=== PATIENT | male | born 1975 | race African-American/Black ===

== ENCOUNTER 2016-05-21 23:19 | Observation (INO) | payer MEDICAID, OTHER ==
[~2016-05-21] VITALS: Ht 193 cm; Wt 115.0 kg
[2016-05-21 23:24] VITALS: BP 163/108; PULSE 81; RESP 16; TEMP 97.9; O2SAT 97
[2016-05-22 00:01] LABS: AUTOMATED NEUTROPHIL # 4.2 TH/MM3 (1.8-7.7); BASOPHIL % 0.3 % (0.0-2.0); EOSINOPHIL # 0.2 TH/MM3 (0-0.4); EOSINOPHIL % 2.4 % (0.0-4.0); HEMATOCRIT 42.1 % (39.0-51.0); HEMO FLAGS DIFF FINAL; LYMPH % 35.2 % (9.0-44.0); LYMPHOCYTE # 2.9 TH/MM3 (1.0-4.8); MEAN CELL VOLUME 83.5 FL (80.0-100.0); MEAN CORPUSCULAR HEMOGLOBIN 27.5 PG (27.0-34.0); MEAN CORPUSCULAR HGB CONC 32.9 % (32.0-36.0); MONO % 10.7 % (0.0-8.0); NEUT % 51.4 % (16.0-70.0); PLATELET COUNT 245 TH/MM3 (150-450); RED BLOOD COUNT 5.05 MIL/MM3 (4.50-5.90); WHITE BLOOD COUNT 8.2 TH/MM3 (4.0-11.0)
[2016-05-22 00:07] VITALS: BP 146/95; PULSE 84; RESP 16; O2SAT 95
[2016-05-22 00:16] LABS: APTT (PATIENT) 26.6 SEC (24.3-30.1); INTERNATIONAL NORMALIZED RATIO 0.9 RATIO
--- NOTE | 2016-05-22 00:18 | RADRPT ---
EXAM DATE/TIME: 05/21/2016 23:32 [facility] COMPARISON: No previous studies available for comparison. INDICATIONS : Chest pain. MEDICAL HISTORY : None. SURGICAL HISTORY : None. ENCOUNTER: Initial ACUITY: 2 weeks PAIN SCORE: 5/10 LOCATION: Bilateral chest FINDINGS: A single view of the chest demonstrates the lungs to be symmetrically aerated without evidence of mas s, infiltrate or effusion. The cardiomediastinal contours are unremarkable. Osseous structures are intact. CONCLUSION: No acute disease. Jose Michael MD on May 22, 2016 at 0:16 Board Certified Radiologist. This report was verified electronically.
[2016-05-22 00:22] LABS: ANION GAP 8 MEQ/L (5-15); BICARBONATE 29.6 MEQ/L (21.0-32.0); BLOOD UREA NITROGEN 15 MG/DL (7-18); CHLORIDE 104 MEQ/L (98-107); CREATINE KINASE 252 U/L (39-308); GLOMERULAR FILTRATION RATE 60 ML/MIN (>89); POTASSIUM 3.9 MEQ/L (3.5-5.1); SODIUM (NA) 142 MEQ/L (136-145)
[2016-05-22 00:35] LABS: CKMB 0.6 NG/ML (0.5-3.6)
--- NOTE | 2016-05-22 00:57 | PD ---
HPI Chief Complaint: Chest Pain Time Seen by Provider: 00:08 Travel History International Travel<30 days: No Contact w/Intl Traveler<30days: No Traveled to known affect area: No History of Present Illness HPI 40-year-old male complains of chest pain. Patient states that he has intermittent chest pain for the past 2 weeks. Patient states that the pain started on the left chest with radiation to left-sided neck, left shoulder and left arm. Patient states that the pain is not associated with exertion. Patient states the pain is worse when lying down. Patient has history hypertension, dyslipidemia. Patient denies history diabetes. Patient is a nonsmoker. Patient has family history of heart disease. Patient denies history of CAD. On a scale of 1-10 the pain is a 7. PFSH Social History Tobacco Use: No Allergies-Medications (Allergen,Severity, Reaction): Coded Allergies: No Known Allergies (Unverified , 05/21/16) Reported Meds & Prescriptions Reported Meds & Active Scripts Active Medrol Dosepak (Methylprednisolone) 4 Mg Dspk 4 Mg PO DIRECTED Per Pharmacist direction Review of Systems General / Constitutional: No: Fever Eyes: No: Visual changes HENT: No: Headaches Cardiovascular: Positive: Chest Pain or Discomfort Respiratory: No: Shortness of Breath Gastrointestinal: No: Abdominal Pain Genitourinary: No: Dysuria Musculoskeletal: No: Pain Skin: No Rash Neurologic: No: Weakness Psychiatric: No: Depression Endocrine: No: Polydipsia Hematologic/Lymphatic: No: Easy Bruising Physical Exam Narrative GENERAL: Well-nourished, well-developed patient. SKIN: Warm and dry. HEAD: Normocephalic. EYES: No scleral icterus. No injection or drainage. NECK: Supple, trachea midline. No JVD or lymphadenopathy. CARDIOVASCULAR: Regular rate and rhythm without murmurs, gallops, or rubs. RESPIRATORY: Breath sounds equal bilaterally. No accessory muscle use. GASTROINTESTINAL: Abdomen soft, non-tender, nondistended. MUSCULOSKELETAL: No cyanosis, or edema. BACK: Nontender without obvious deformity. No CVA tenderness. Neurologic exam normal. Data Data Last Documented VS Vital Signs Date Time Temp Pulse Resp B/P Pulse Ox O2 Delivery O2 Flow Rate FiO2 05/22/16 00:07 84 16 146/95 95 Room Air 05/21/16 23:24 97.9 Orders Electrocardiogram (05/21/16 23:28) Complete Blood Count With Diff (05/21/16 23:28) Basic Metabolic Panel (Bmp) (05/21/16:28) Ckmb (Isoenzyme) Profile (05/21/16:) Troponin I (05/21/16:) Chest, Single Ap (05/21/16:28) Coag Profile (05/21/16:) CKMB (05/21/16 22:35) CKMB% (05/21/16 22:35) Ketorolac Inj (Toradol Inj) (05/22/16 01:00) Aspirin (Aspirin) (05/22/16 01:00) Activity Bed Rest With Brp (05/22/16 01:02) Vital Signs (Adult) Q4H (05/22/16 01:02) Cardiac Rhythm .As Directed (05/22/16 01:02) ^ Notify Dr: Other .PRN (05/22/16 01:02) ^ Notify Dr. Parameters (05/22/16 01:02) Resp Oxygen Nasal Cannula (05/22/16 ) Ckmb (Isoenzyme) Profile (05/22/16 01:35) Ckmb (Isoenzyme) Profile (05/22/16 04:35) Troponin I (05/22/16 01:35) Troponin I (05/22/16 04:35) Electrocardiogram (05/22/16 01:35) Electrocardiogram (05/22/16 04:35) ^ Obtain (05/22/16 01:02) Acetaminophen (Tylenol) (05/22/16 01:15) Ondansetron Inj (Zofran Inj) (05/22/16 01:15) Metal Sander / Telemetry BONITA.Q8H (05/22/16 01:02) Admit Order (Ed Use Only) (05/22/16 01:17) CKMB (05/22/16 02:45) CKMB% (05/22/16 02:45) Labs Laboratory Tests Test 05/21/16 23:35 White Blood Count 8.2 TH/MM3 Red Blood Count 5.05 MIL/MM3 Hemoglobin 13.9 GM/DL Hematocrit 42.1 % Mean Corpuscular Volume 83.5 FL Mean Corpuscular Hemoglobin 27.5 PG Mean Corpuscular Hemoglobin 32.9 % Concent Red Cell Distribution Width 14.0 % Platelet Count 245 TH/MM3 Mean Platelet Volume 7.9 FL Neutrophils (%) (Auto) 51.4 % Lymphocytes (%) (Auto) 35.2 % Monocytes (%) (Auto) 10.7 % Eosinophils (%) (Auto) 2.4 % Basophils (%) (Auto) 0.3 % Neutrophils # (Auto) 4.2 TH/MM3 Lymphocytes # (Auto) 2.9 TH/MM3 Monocytes # (Auto) 0.9 TH/MM3 Eosinophils # (Auto) 0.2 TH/MM3 Basophils # (Auto) 0.0 TH/MM3 CBC Comment DIFF FINAL Differential Comment Prothrombin Time 10.0 SEC Prothromb Time International 0.9 RATIO Ratio Activated Partial 26.6 SEC Thromboplast Time Sodium Level 142 MEQ/L Potassium Level 3.9 MEQ/L Chloride Level 104 MEQ/L Carbon Dioxide Level 29.6 MEQ/L Anion Gap 8 MEQ/L Blood Urea Nitrogen 15 MG/DL Creatinine 1.32 MG/DL Estimat Glomerular Filtration 60 ML/MIN Rate Random Glucose 111 MG/DL Calcium Level 8.5 MG/DL Total Creatine Kinase 252 U/L Creatine Kinase MB 0.6 NG/ML Troponin I LESS THAN 0.02 NG/ML MDM Medical Decision Making Medical Screen Exam Complete: Yes Emergency Medical Condition: Yes Interpretation(s) EKG shows sinus rhythm with nonspecific ST-T wave change. Minimal ST elevation in II, III and aVF. EKG was sent to Dr. Soto by phone. Last Impressions Chest X-Ray 05/21/16 0994 Signed Impressions: Service Date/Time: Saturday, May 21, 2016 23:32 - CONCLUSION: No acute disease. Jose Michael MD 12:56 AM. CBC within normal limit. BMP within normal limit. Creatinine 1.32. Cardiac enzymes are normal. Differential Diagnosis Differential diagnosis including angina, PR, PE, pneumothorax. Narrative Course 40-year-old male with left-sided chest pain. Toradol 30 mg IV. Aspirin 325 mg by mouth. Diagnosis Primary Impression: Chest pain Qualified Code: R07.9 - Chest pain, unspecified type Admitting Information Admitting Physician Requests: Observation Scripts Methylprednisolone Dosepak (Medrol Dosepak)4 Mg Dspk4 Mg PO DIRECTED #1 DSPK Ref 0 Per Pharmacist direction Prov:Kali Landaverde 05/22/16 Kimo Cheng MD May 22, 2016 00:57
[2016-05-22] MEDS ORDERED: ASPIRIN 325 MG TAB PO ONE (01:00)
[2016-05-22] MEDS ORDERED: KETOROLAC TROMETHAMINE 30 MG/ML (IVP) VIAL IV PUSH ONE (01:00)
[2016-05-22] MEDS ORDERED: ONDANSETRON HCL 4 MG/2 ML VIAL IV PRN (01:15)
[2016-05-22] MEDS ORDERED: ACETAMINOPHEN 500 MG CPLT PO PRN (01:15)
[2016-05-22 03:36] LABS: CREATINE KINASE 236 U/L (39-308)
[2016-05-22 03:48] LABS: CKMB 0.8 NG/ML (0.5-3.6)
[2016-05-22 04:15] VITALS: BP 138/78; PULSE 81; RESP 16; O2SAT 97
[2016-05-22 05:13] LABS: CREATINE KINASE 204 U/L (39-308)
[2016-05-22 07:30] VITALS: BP 124/85; PULSE 70; RESP 17; TEMP 97.8; O2SAT 98
[2016-05-22] MEDS ORDERED: IOHEXOL 350 MG/ML 10 ML VIAL (for RAD DIAG) IV ONE (08:13)
--- NOTE | 2016-05-22 08:27 | RADRPT ---
EXAM DATE/TIME: 05/22/2016 07:57 [facility] COMPARISON: No previous studies available for comparison. INDICATIONS : Chest pain and shortness of breath. IV CONTRAST: 75 cc Omnipaque 350 (iohexol) IV RADIATION DOSE: 39.25 CTDIvol (mGy) MEDICAL HISTORY : None SURGICAL HISTORY : None. ENCOUNTER: Initial ACUITY: 1 day PAIN SCALE: 7/10 LOCATION: chest TECHNIQUE: Volumetric scanning of the chest was performed using a pulmonary embolism protocol MIP images were re constructed. Using automated exposure control and adjustment of the mA and/or kV according to patien t size, radiation dose was kept as low as reasonably achievable to obtain optimal diagnostic quality images. FINDINGS: PULMONARY ARTERIES: No filling defects are seen in the pulmonary arteries through the segmental level. LUNGS: There is no consolidation or pneumothorax . No concerning pulmonary nodule is visualized. PLEURAE: There is no pleural thickening or pleural effusion. MEDIASTINUM: There is good visualization of the great vessels of the middle mediastinum. No evidence of mediastin al or hilar adenopathy/mass. MUSCULOSKELETAL: Within normal limits for patient age. MISCELLANEOUS: The visualized upper abdominal organs demonstrate no acute abnormality. CONCLUSION: Normal examination. Javier Han MD on May 22, 2016 at 8:17 Board Certified Radiologist. This report was verified electronically.
--- NOTE | 2016-05-22 10:15 | HHI.HP ---
HPI Primary Care Physician No Primary Care Physician Chief Complaint Chest pain History of Present Illness This is a 40-year-old male that presents to the ED via private vehicle with complaints of back pain as well as chest pain intermittently for about 2 weeks. First symptoms included a discomfort in his left back beneath his left scapula. It radiated up to his neck on the left side and around to his left rib cage. Then yesterday he had a different discomfort that was in addition to the discomfort in his back that radiated to the neck and chest. The new symptom was a discomfort in the left side of his chest and felt deeper. It began while he was driving home and persisted while he was at home. He states he decided to go lay down and when he laid down the discomfort intensified significantly and he felt as if he is having a hard time catching his breath and her more when he would try to take in a deep breath. He suddenly sat up and realized that when he sat up the discomfort improved significantly. He tried to lay back down but worse since a sat back up. He took an ibuprofen and sat in his chair. The discomfort that began to improve however his back, neck, and other discomfort his chest continued and he began to worry. That is when he presented to the ED. He states he was given more medication in the ER. Upon review records she was given IV Toradol. He states that after getting medication and he also believes the Motrin helped and is now able to lie back without worsening symptoms or having shortness of breath or inspirational chest discomfort. The discomfort in his back is still there but that is also improved. He denies any recent illnesses. Denies fevers or chills. Denies history of CAD. Review of Systems General: Patient denies fevers, chills recent, and recent travel HEENT: Patient denies headache, sore throat, difficulty swallowing. Cardiovascular: Has the chest discomfort as mentioned above. Denies sensation of heart beating rapidly or irregularly. No syncope. Denies diaphoresis. Respiratory: He had shortness of breath, inspirational chest discomfort, and his discomfort worsened when he would lie down. Denies coughing wheezing or hemoptysis. GI: Patient denies nausea, vomiting, diarrhea, abdominal pain, bloody stools. Musculoskeletal: Patient denies joint pain or edema. Denies calf pain or edema. Neurovascular: Patient denies numbness, tingling, weakness in extremities. Denies headache. Endocrine: Denies polyuria and polydipsia. Hematologic: Denies easy bruising. Skin: Denies rash or itching. Past Family Social History Allergies: Coded Allergies: No Known Allergies (Unverified , 05/21/16) Past Medical History Denies hypertension, hyperlipidemia, diabetes, and CAD. He is a lifetime nonsmoker. Past Surgical History Denies surgeries. Reported Medications Reported Meds & Active Scripts Active No Active Prescriptions or Reported Medications Active Ordered Medications Current Medications Medications (Trade) Dose Ordered Sig/Tan Route Start Time Stop Time Status Last Admin (Tylenol) 500 mg Q4H PRN PO 05/22/16 01:15 (Zofran Inj) 4 mg Q6H PRN IV 05/22/16 01:15 Family History Denies family history of CAD. Social History Patient is a lifetime nonsmoker. Has occasional alcohol. Denies illicit drugs. Physical Exam Vital Signs Vital Signs Date Time Temp Pulse Resp B/P Pulse Ox O2 Delivery O2 Flow Rate FiO2 05/22/16 07:30 76 17 98 Room Air 05/22/16 07:30 97.8 70 17 124/85 98 Room Air 05/22/16 04:15 81 16 138/78 97 Room Air 05/22/16 02:16 16 05/22/16 00:07 84 16 146/95 95 Room Air 05/21/16 23:58 97 Room Air 05/21/16 23:24 97.9 81 16 163/108 97 Room Air Physical Exam GENERAL: This is a well-nourished, well-developed patient, in no apparent distress. Patient speaks in clear complete sentences. Patient is pleasant. HEENT: Head is atraumatic and normocephalic. Neck is supple without lymphadenopathy and trachea is midline. No JVD or carotid bruits. CARDIOVASCULAR: Regular rate and rhythm without murmurs, gallops, or rubs. RESPIRATORY: The chest discomfort that worsened when he would lie flat is not reproducible however the discomfort that would radiate from his back is worsened with twisting of the torso. Clear to auscultation. Breath sounds equal bilaterally. No wheezes, rales, or rhonchi. No use of accessory muscles. GASTROINTESTINAL: Abdomen is nontender, nondistended. Abdomen soft. No obvious pulsatile mass or bruit. No CVA tenderness. Strong femoral pulses bilaterally. Normal bowel sounds in all quadrants. MUSCULOSKELETAL: Patient is moving upper and lower extremities freely. No calf tenderness or edema, no Homans sign. Strong pulses in upper and lower extremities. NEUROLOGICAL: Patient is alert and oriented. Cranial nerves 2-12 are grossly intact. No focal deficits and speech is clear. SKIN: No rash and turgor is normal. Laboratory Laboratory Tests Test 05/21/16 05/22/16 05/22/16 23:35 02:45 04:32 White Blood Count 8.2 Red Blood Count 5.05 Hemoglobin 13.9 Hematocrit 42.1 Mean Corpuscular Volume 83.5 Mean Corpuscular Hemoglobin 27.5 Mean Corpuscular Hemoglobin 32.9 Concent Red Cell Distribution Width 14.0 Platelet Count 245 Mean Platelet Volume 7.9 Neutrophils (%) (Auto) 51.4 Lymphocytes (%) (Auto) 35.2 Monocytes (%) (Auto) 10.7 Eosinophils (%) (Auto) 2.4 Basophils (%) (Auto) 0.3 Neutrophils # (Auto) 4.2 Lymphocytes # (Auto) 2.9 Monocytes # (Auto) 0.9 Eosinophils # (Auto) 0.2 Basophils # (Auto) 0.0 CBC Comment DIFF FINAL Differential Comment Prothrombin Time 10.0 Prothromb Time International 0.9 Ratio Activated Partial 26.6 Thromboplast Time Sodium Level 142 Potassium Level 3.9 Chloride Level 104 Carbon Dioxide Level 29.6 Anion Gap 8 Blood Urea Nitrogen 15 Creatinine 1.32 Estimat Glomerular Filtration 60 Rate Random Glucose 111 Calcium Level 8.5 Total Creatine Kinase 252 236 204 Creatine Kinase MB 0.6 0.8 Troponin I LESS THAN 0.02 LESS THAN 0.02 LESS THAN 0.02 Result Diagram: 05/21/16 2335 05/21/162334 Imaging Last [address] Angiography 05/22/16 0617 Signed Impressions: Service Date/Time: April 07:57 - CONCLUSION: Normal examination. Javier Han MD Chest X-Ray 05/21/16 Signed Impressions: Service Date/Time: Saturday, May 21, 2016 23:32 - CONCLUSION: No acute disease. Jose Michael MD Course EKGs have sinus rhythm to sinus tachycardia. There are generalized ST elevations which could be the pattern of early repolarization but also could be a pericarditis with his clinical symptoms. Assessment and Plan Assessment and Plan * Chest pain: Patient had serial troponins for ruling out purposes. His EKG is abnormal which could be a pericarditis. Dr. Kenney will evaluate the patient to further determine this. Further treatment pending his evaluation. Patient likely not to have a stress test. Patient's symptoms have improved after taking ibuprofen at home and IV Toradol in the ED. Patient will need to follow- up with her primary care physician. Kali Landaverde May 22, 2016 10:15
[2016-05-22 11:14] VITALS: BP 120/81; TEMP 97.8
[2016-05-22] MEDS ORDERED: DEXAMETHASONE SOD PHOS 20 MG/5 ML VIAL IV PUSH ONE (12:00)
[2016-05-22] MEDS ORDERED: MEDR4PAK PO (12:08)
--- NOTE | 2016-05-22 12:08 | HHI.DCPOC ---
Discharge Care Plan Diagnosis: (1) Pericarditis Goals to Promote Your Health * To prevent worsening of your condition and complications * To maintain your health at the optimal level Directions to Meet Your Goals Take your medications as prescribed Follow your dietary instruction Follow activity as directed Keep your appointments as scheduled Take your immunizations and boosters as scheduled If your symptoms worsen call your PCP, if no PCP go to Urgent Care Center or Emergency Room Smoking is Dangerous to Your Health. Avoid second hand smoke Call the 24-hour hour crisis hotline for domestic abuse at Kali Landaverde May 22, 2016 12:08
[2016-05-22 12:21] VITALS: BP 133/83; PULSE 68; RESP 20; TEMP 98.4; O2SAT 95
--- NOTE | 2016-05-22 14:20 | EKG ---
Date Performed: 05/22/2016 Time Performed: 02:28:08 PTAGE: 40 years EKG: Sinus rhythm WITH FIRST DEGREE AV BLOCK EARLY REPOLARIZATION VS pericarditis ABNORMAL ECG PREVIOUS TRACING : 05/21/2016 23.42 Since previous tracing, no significant change noted DOCTOR: Rao Kenney Interpretating Date/Time 05/22/2016 14:19:25
--- NOTE | 2016-05-22 14:27 | EKG ---
Date Performed: 05/21/2016 Time Performed: 23:42:11 PTAGE: 40 years EKG: Sinus rhythm ST elevation,early repol. VS pericarditis NO PREVIOUS TRACING DOCTOR: Rao Kenney Interpretating Date/Time 05/22/2016 14:26:11
--- NOTE | 2016-05-22 14:43 | EKG ---
Date Performed: 05/22/2016 Time Performed: 05:32:29 PTAGE: 40 years EKG: Sinus rhythm WITH FIRST DEGREE AV BLOCK ST elevation,early repolarization VS pericarditis PREVIOUS TRACING : 05/21/2016 23.42 DOCTOR: Rao Kenney Interpretating Date/Time 05/22/2016 14:40:05
--- NOTE | 2016-05-24 11:24 | EKG ---
Date Performed: 05/22/2016 Time Performed: 12:14:00 PTAGE: 40 years EKG: Sinus rhythm ST ELEVATION, CONSIDER LATERAL INJURY ACUTE KS PREVIOUS TRACING : 05/22/2016 05.32 DOCTOR: Matteo Chacon Interpretating Date/Time 05/24/2016 11:22:08
== END 2016-05-22 14:48 | disposition home or self-care (01) ==
LOC: NEPC 23:19 → NEDA 05-22 01:19 → NEDH 05-22 05:19 → NEPGCP 05-22 11:30
PROVIDERS: ADMIT Internal Medicine Cardiovascular Disease; ATTEND Internal Medicine Cardiovascular Disease
DX: R07.9 Chest pain, unspecified (principal); Z82.49 Family history of ischemic heart disease and other diseases of the circulatory system
CPT/HCPCS: 71010; 71275; 80048; 82550; 82552; 84484; 85025; 85610; 85730; 93005; 96374; G0378; J1100; J1885; Q9967